=== PATIENT | female | born 2000 | race Two or more races ===

== ENCOUNTER 2021-09-26 05:25 | Emergency (ER) | payer OTHER ==
[~2021-09-26] VITALS: Ht 167.6 cm; Wt 70.0 kg
[2021-09-26] MEDS ORDERED: IBUPROFEN 600 MG TABLET PO ONE (06:15)
[2021-09-26] MEDS ORDERED: ONDANSETRON HCL 4 MG TABLET PO ONE (06:15)
[2021-09-26] MEDS ORDERED: ACETAMINOPHEN 325 MG TABLET PO ONE (06:15)
[2021-09-26 06:54] LABS: APPEARANCE,URINE HAZY (CLEAR); BILIRUBIN,URINE NEGATIVE (NEGATIVE); GLUCOSE, URINE (UA) NEGATIVE (NEGATIVE); KETONES,URINE NEGATIVE (NEGATIVE); LEUKOCYTE ESTERASE ,URINE LARGE (NEGATIVE); NITRATE,URINE POSITIVE (NEGATIVE); OCCULT BLOOD,URINE LARGE (NEGATIVE); PH,URINE 5.5 (5.0-8.0); PROTEIN,URINE 30-70 mg/dL (NEGATIVE); SPECIFIC GRAVITIY, URINE 1.025 (1.003-1.030)
[2021-09-26 07:08] LABS: BACTERIA,URINE Few /HPF (None Seen); RBC,URINE 0-2 /HPF (0-2); SQUAMOUS EPITHELIAL CELL,UR Few /LPF (None Seen); WBC,URINE 26-50 /HPF (0-5)
[2021-09-26] MEDS ORDERED: CEPHALEXIN MONOHYDRATE 500 MG CAPSULE PO ONE (07:15)
[2021-09-26] MEDS ORDERED: CEPH-558 PO (07:19)
[2021-09-26 07:36] VITALS: BP 112/63
== END 2021-09-26 07:40 | disposition home or self-care (01) ==
LOC: EMS 05:28
DX: N12 Tubulo-interstitial nephritis, not specified as acute or chronic (principal)
CPT/HCPCS: 99284; 81001; 84703; 87086; Q0162